=== PATIENT | male | born 2000 | race Caucasian/White ===

== ENCOUNTER 2019-03-26 21:12 | Emergency (ER) | payer OTHER ==
[~2019-03-26] VITALS: Ht 175.3 cm; Wt 68.0 kg
[2019-03-26 21:21] VITALS: BP 165/141
[2019-03-26 21:32] LABS: ABSOLUTE NEUTROPHILS 2.9 thou/uL (1.4-8.2); BASOPHILS 0.4 % (0.0-2.0); EOSINOPHILS 0.4 % (0.0-3.0); HEMATOCRIT 35.9 % (42.0-52.0); HEMOGLOBIN 11.9 gm/dL (14.0-18.0); LYMPHOCYTES 49.4 % (24.0-44.0); MCH 29.3 pg (26.0-34.0); MCHC 33.2 g/dL (28.0-37.0); MCV 88.2 fL (80.0-100.0); MONOCYTES 4.5 % (1.0-8.0); PLATELET COUNT 240 thou/uL (150-400); POLYS 45.3 % (36.0-66.0); RBC 4.07 mil/uL (4.50-6.00); RDW 14.1 % (10.5-14.5); WBC 6.4 thou/uL (4.0-11.0)
[2019-03-26 21:41] LABS: ANION GAP 15 mmol/L (7-16); BUN 12 mg/dL (7-18); CALCIUM 9.3 mg/dL (8.5-10.1); CHLORIDE 105 mmol/L (98-107); CO2 21 mmol/L (21-32); CREATININE 1.2 mg/dL (0.7-1.3); GLUCOSE 253 mg/dL (74-106); POTASSIUM 3.9 mmol/L (3.5-5.1); SODIUM 141 mmol/L (136-145)
[2019-03-26 21:46] LABS: ALBUMIN 3.7 g/dL (3.4-5.0); SALICYLATE 5.4 mg/dL (2.8-20.0); SGOT 24 U/L (15-37); SGPT 20 U/L (30-65); TOTAL BILIRUBIN 0.3 mg/dL (<0.1-1.0); TOTAL PROTEIN 6.6 g/dL (6.4-8.2)
[2019-03-26 21:49] LABS: APTT 19.9 Seconds (24.5-32.8); INR 1.1; PROTIME 11.1 Seconds (9.3-11.4)
== END 2019-03-26 22:01 | disposition short-term general hospital (02) ==
LOC: ER 21:12
PROVIDERS: Emergency Medicine
DX: S31.103A Unspecified open wound of abdominal wall, right lower quadrant without penetration into peritoneal cavity, initial encounter (principal); S31.104A Unspecified open wound of abdominal wall, left lower quadrant without penetration into peritoneal cavity, initial encounter; S51.802A Unspecified open wound of left forearm, initial encounter; F17.210 Nicotine dependence, cigarettes, uncomplicated; W34.09XA Accidental discharge from other specified firearms, initial encounter; Y93.89 Activity, other specified; Y92.89 Other specified places as the place of occurrence of the external cause; Y99.8 Other external cause status